=== PATIENT | female | born 1980 | race African-American/Black ===

== ENCOUNTER 2019-09-01 17:29 | Emergency (ER) | payer OTHER ==
[~2019-09-01] VITALS: Ht 162.6 cm; Wt 61.2 kg
--- NOTE | 2019-09-01 18:38 | Diagnostic Imaging Report ---
EXAMINATION: CXR 2 VIEW - HOPD INDICATION: Cough and fever ^cough fever ^[id number] ^[id number] ^N COMPARISON: None FINDINGS: TUBES and LINES: None. LUNGS: Perihilar peribronchial hazy opacity could be due to bronchitis. No consolidation. PLEURA: No pleural effusion or pneumothorax. HEART AND MEDIASTINUM: The cardiomediastinal silhouette is unremarkable. BONES AND SOFT TISSUES: No acute osseous lesion. Soft tissues are unremarkable. UPPER ABDOMEN: No free air under the diaphragm. IMPRESSION: Perihilar peribronchial hazy opacity could be due to bronchitis. No consolidation. Signed by: Dr. Eliu Jimenez M.D. on 09/01/2019 6:34 PM
== END 2019-09-01 19:20 | disposition home or self-care (01) ==
LOC: FSED 17:29
DX: R50.9 Fever, unspecified (principal); R05 Cough; J20.8 Acute bronchitis due to other specified organisms
CPT/HCPCS: 71046; 80048; 81003; 81025; 83518; 84484; 85025; 87400; 93005; 99284